=== PATIENT | male | born 1955 | race African-American/Black ===

== ENCOUNTER 2022-06-20 15:20 | Inpatient (IN) | payer MEDICARE ==
[~2022-06-20] VITALS: Ht 185.4 cm; Wt 82.9 kg
[2022-06-20] MEDS ORDERED: INFLUENZA VIRUS VACCINE QVS 2022-23 (6MO+)/PF 60 MCG/0.5 ML SYRINGE IM. ONE (19:15)
[2022-06-20] MEDS ORDERED: PNEUMOCOCCAL VACCINE POLYVALENT 0.5 ML VIAL [PPSV23] IM. ONE (19:15)
[2022-06-20 19:30] VITALS: BP 107/71
[2022-06-20] MEDS: ZOLPIDEM TARTRATE 10 MG TABLET PO PRN (20:39)
[2022-06-20] MEDS: QUEtiapine FUMARATE 100 MG TABLET PO PRN (20:39)
[2022-06-20 22:01] LABS: COVID AG,FIA SOURCE NASAL SWAB
[2022-06-21 06:55] LABS: BASOPHILS % (AUTO) 1.3 % (0.0-2.0); EOSINOPHILS % (AUTO) 5.2 % (1.0-6.0); HEMATOCRIT 37.2 % (41-53); HEMOGLOBIN 12.1 g/dL (13.5-17.5); LYMPHOCYTES # (AUTO) 1.1 K/uL (1.0-4.8); LYMPHOCYTES % (AUTO) 25.5 % (22.0-44.0); MEAN CORPUSCULAR HEMOGLOBIN 25.5 pg (26.0-34.0); MEAN CORPUSCULAR HGB CONC 32.4 G/dL (31.0-37.0); MEAN CORPUSCULAR VOLUME 79 fL (80-100); MONOCYTES # (AUTO) 0.4 K/uL (0.1-1.0); MONOCYTES % (AUTO) 10.3 % (2.0-9.0); NEUTROPHILS # (AUTO) 2.4 K/uL (1.8-7.7); NEUTROPHILS % (AUTO) 57.7 % (40.0-70.0); PLATELET COUNT (AUTO) 240 K/uL (150-450); RED BLOOD CELL COUNT(AUTO) 4.73 MIL/uL (4.50-5.90); RED CELL DISTRIBUTION WIDTH 14.8 % (11.5-14.5)
[2022-06-21 07:11] LABS: ALANINE AMINOTRANSFERASE 17 U/L (12-78); ALBUMIN 3.2 g/dL (3.4-5.0); ALKALINE PHOSPHATASE 81 U/L (46-116); ANION GAP 9 mmol/L (8-16); ASPARTATE AMINOTRANSFERASE 12 U/L (15-37); BILIRUBIN,TOTAL 0.5 mg/dL (0.1-1.0); CALCIUM, TOTAL 8.6 mg/dL (8.8-10.5); CARBON DIOXIDE 26 mmol/L (22-29); CHLORIDE 105 mmol/L (98-107); CHOL/HDL RATIO 2.4 (4.2-7.3); CHOLESTEROL 189 mg/dL (131-200); CREATININE 0.86 mg/dL (0.60-1.30); FREE T4 (FREE THYROXINE) 0.84 ng/dL (0.76-1.46); GLUCOSE,RANDOM 92 mg/dL (70-110); HDL CHOLESTEROL 79 mg/dL (40-60); LDL CHOL (CALC.) 102 mg/dL (0-130); POTASSIUM 3.8 mmol/L (3.5-5.1); SODIUM SERUM 140 mmol/L (136-145); THYROID STIMULATING HORMONE 1.52 uIU/mL (0.36-3.74); TOTAL PROTEIN, SERUM 6.3 g/dL (6.4-8.2); TRIGLYCERIDES 38 mg/dL (15-150); UREA NITROGEN, BLOOD 16 mg/dL (7-18)
[2022-06-21 07:13] LABS: GLOMERULAR FILTR. RATE CALC > 60 mL/min (>60); HEMOGLOBIN A1C 5.4 % (3.8-5.6)
[2022-06-21 07:49] VITALS: BP 112/73
[2022-06-21] MEDS: TraMADol HCL 50 MG TABLET PO PRN ×2 (07:49→17:41)
[2022-06-21 08:11] LABS: APPEARANCE,URINE CLEAR (CLEAR); BILIRUBIN,URINE NEGATIVE (NEGATIVE); GLUCOSE, URINE (UA) NEGATIVE (NEGATIVE); KETONES,URINE NEGATIVE (NEGATIVE); LEUKOCYTE ESTERASE ,URINE NEGATIVE (NEGATIVE); NITRATE,URINE NEGATIVE (NEGATIVE); OCCULT BLOOD,URINE NEGATIVE (NEGATIVE); PROTEIN,URINE NEGATIVE (NEGATIVE); SPECIFIC GRAVITIY, URINE 1.021 (1.003-1.030); UROBILINOGEN,URINE <=1.0 mg/dL (<=1.0)
[2022-06-21 08:26] LABS: AMPHET/METH SCREEN,URINE NEGATIVE (NEGATIVE); BARBITURATE SCREEN, URINE NEGATIVE (NEGATIVE); BENZODIAZEPINES SCREEN,URINE NEGATIVE (NEGATIVE); CANNABINOID SCREEN,URINE NEGATIVE (NEGATIVE); COCAINE SCREEN,URINE NEGATIVE (NEGATIVE); METHADONE SCREEN, URINE NEGATIVE (NEGATIVE); OPIATE SCREEN,URINE NEGATIVE (NEGATIVE)
[2022-06-21 08:29] LABS: PHENCYCLIDINE SCREEN,URINE NEGATIVE (NEGATIVE)
[2022-06-21 08:54] VITALS: BP 112/73
[2022-06-21 16:09] VITALS: BP 105/75
[2022-06-21 17:41] VITALS: BP 116/76
[2022-06-21] MEDS ORDERED: MAGNESIUM HYDROXIDE SUSPENSION 30 ML UDCUP PO PRN (19:00)
[2022-06-21] MEDS ORDERED: MAG HYDROX/AL HYDROX/SIMETH ES 30 ML SUSPENSION UDCUP PO PRN (19:00)
[2022-06-21] MEDS ORDERED: LOPERAMIDE HCL 2 MG CAPSULE PO PRN (19:00)
[2022-06-21] MEDS ORDERED: CloNIDine HCL 0.1 MG TABLET PO PRN (19:00)
[2022-06-21] MEDS ORDERED: ONDANSETRON HCL 4 MG TABLET PO PRN (19:00)
[2022-06-21] MEDS ORDERED: PETROLATUM,WHITE 28 GM JELLY TP PRN (19:00)
[2022-06-21] MEDS ORDERED: GuaiFENesin/D-METHORPHAN [SUGAR-FREE] 200-20MG/10 ML SYRUP UDCUP PO PRN (19:00)
[2022-06-21] MEDS ORDERED: ALBUTEROL SULFATE HFA 90 MCG/PUFF 8 GM INHALER IH PRN (19:00)
[2022-06-21] MEDS ORDERED: DOCUSATE SODIUM 100 MG CAPSULE PO PRN (19:00)
[2022-06-21] MEDS ORDERED: NICOTINE 14 MG/24 HOUR PATCH TD PRN (19:00)
[2022-06-21] MEDS ORDERED: ACETAMINOPHEN 325 MG TABLET PO PRN (19:00)
[2022-06-21] MEDS: QUEtiapine FUMARATE 200 MG TABLET PO SCH (20:14)
[2022-06-22 08:30] VITALS: BP 119/78
[2022-06-22 09:00] VITALS: BP 119/78
[2022-06-22] MEDS: TraMADol HCL 50 MG TABLET PO PRN (09:00)
[2022-06-22 10:00] VITALS: BP 111/71
[2022-06-22 13:50] LABS: COVID AG,FIA SOURCE NASAL SWAB
[2022-06-22] MEDS: LORazepam 2 MG TABLET PO PRN (14:33)
[2022-06-22 16:37] VITALS: BP 94/62
[2022-06-22] MEDS: QUEtiapine FUMARATE 200 MG TABLET PO SCH (20:39)
[2022-06-23 08:00] VITALS: BP 108/64
[2022-06-23] MEDS: TraMADol HCL 50 MG TABLET PO PRN (08:00)
[2022-06-23 12:17] VITALS: BP 116/65
[2022-06-23] MEDS: IBUPROFEN 400 MG TABLET PO PRN (12:17)
[2022-06-23 16:28] VITALS: BP 100/60
[2022-06-23] MEDS: QUEtiapine FUMARATE 200 MG TABLET PO SCH (20:12)
[2022-06-24 07:53] VITALS: BP 88/60
[2022-06-24] MEDS: LORazepam 2 MG TABLET PO PRN (07:53)
[2022-06-24] MEDS: IBUPROFEN 400 MG TABLET PO PRN ×2 (07:53→21:54)
[2022-06-24 08:53] VITALS: BP 96/64
[2022-06-24] MEDS: QUEtiapine FUMARATE 200 MG TABLET PO SCH (20:56)
[2022-06-24 21:52] VITALS: BP 94/62
[2022-06-24] MEDS: ZOLPIDEM TARTRATE 10 MG TABLET PO PRN (21:53)
[2022-06-25 08:31] VITALS: BP 103/70
[2022-06-25] MEDS: IBUPROFEN 400 MG TABLET PO PRN ×2 (08:34→17:51)
[2022-06-25 17:47] VITALS: BP 103/61
[2022-06-25] MEDS: QUEtiapine FUMARATE 100 MG TABLET PO PRN (17:51)
[2022-06-25] MEDS: QUEtiapine FUMARATE 200 MG TABLET PO SCH (20:39)
[2022-06-25] MEDS: ZOLPIDEM TARTRATE 10 MG TABLET PO PRN (21:45)
[2022-06-26 08:30] VITALS: BP 100/62
[2022-06-26 11:32] LABS: COVID AG,FIA SOURCE NASAL SWAB
== END 2022-06-26 12:07 | disposition short-term general hospital (02) | DRG 885 ==
LOC: 3EC 16:56
PROVIDERS: ADMIT Psychiatry & Neurology Psychiatry; ATTEND Psychiatry & Neurology Psychiatry
DX: F20.0 Paranoid schizophrenia (principal); R45.851 Suicidal ideations; S52.502A Unspecified fracture of the lower end of left radius, initial encounter for closed fracture; R45.850 Homicidal ideations; F10.10 Alcohol abuse, uncomplicated; D72.819 Decreased white blood cell count, unspecified; D64.9 Anemia, unspecified; W18.39XA Other fall on same level, initial encounter; Y93.89 Activity, other specified; Z59.00 Homelessness unspecified; Z79.899 Other long term (current) drug therapy; Y92.89 Other specified places as the place of occurrence of the external cause; Y99.8 Other external cause status
CPT/HCPCS: 80053; 80061; 80307; 81003; 83036; 84439; 84443; 85025; 87081

== ENCOUNTER 2022-06-26 11:56 | Inpatient (IN) | payer OTHER ==
[~2022-06-26] VITALS: Ht 185.4 cm; Wt 81.8 kg
[2022-06-26] MEDS ORDERED: MIDAZOLAM HCL 2 MG/2 ML VIAL IVP ONE (12:00)
[2022-06-26] MEDS ORDERED: ONDANSETRON HCL 4 MG/2 ML VIAL IVP ONE (12:00)
[2022-06-26] MEDS ORDERED: LIDOCAINE/PF 2% 5 ML VIAL IM ONE (12:00)
[2022-06-26] MEDS ORDERED: FentaNYL CITRATE PF 100 MCG/2 ML VIAL IVP ONE (12:00)
[2022-06-26] MEDS ORDERED: MORPHINE SULFATE/PF 0.5 MG/ML 10 ML AMP IVP ONE (12:00)
[2022-06-26] MEDS ORDERED: PROPOFOL 1% 20 ML VIAL IVP ONE (12:00)
[2022-06-26] MEDS ORDERED: SUCCINYLCHOLINE CHLORIDE 20 MG/ML 10 ML VIAL IVP ONE (12:00)
[2022-06-26] MEDS ORDERED: DEXAMETHASONE SOD PHOS 4 MG/ML VIAL IVP ONE (12:00)
[2022-06-26] MEDS ORDERED: 0.9% SODIUM CHLORIDE 10 ML VIAL IVP ONE (12:00)
[2022-06-26] MEDS ORDERED: SODIUM CL IRRIG SOLN BAG 3,000 ML IRRIG ONE (12:07)
[2022-06-26] MEDS ORDERED: BUPIVACAINE HCL/PF 0.25% 30 ML VIAL ONE (12:07)
[2022-06-26] MEDS ORDERED: VANCOMYCIN HCL 1 GM/VIAL ONE ×2 (12:07→12:11)
[2022-06-26] MEDS ORDERED: RINGERS SOLUTION,LACTATED 1,000 ML IV ONE (12:15)
[2022-06-26] MEDS ORDERED: BUPIVACAINE LIPOSOME/PF 1.3%-13.3MG/ML SUSPENSION 20 ML VIAL INJ ONE (12:15)
[2022-06-26] MEDS ORDERED: HYDROmorphone HCL 2 MG/ML SYRINGE IVP PRN (14:15)
[2022-06-26] MEDS ORDERED: FentaNYL CITRATE PF 100 MCG/2 ML VIAL IVP PRN (14:15)
[2022-06-26] MEDS ORDERED: HYDROmorphone HCL 2 MG/ML SYRINGE ONE (16:37)
[2022-06-26] MEDS ORDERED: FentaNYL CITRATE PF 100 MCG/2 ML VIAL ONE (16:41)
[2022-06-26] MEDS ORDERED: OxyCODONE HCL/ACETAMINOPHEN 5-325 MG TABLET PO PRN (17:00)
[2022-06-26 17:40] VITALS: BP 127/78
[2022-06-26] MEDS: OxyCODONE HCL/ACETAMINOPHEN 5-325 MG TABLET PO PRN ×2 (17:56→23:58)
[2022-06-26] MEDS: OXYGEN THERAPY IH SCH (20:20)
[2022-06-26] MEDS: CeFAZolin 1 GM/DEXTROSE 50 ML IV SCH (20:21)
[2022-06-26 20:41] VITALS: BP 118/73
[2022-06-27 05:38] VITALS: BP 125/73
[2022-06-27] MEDS: OxyCODONE HCL/ACETAMINOPHEN 5-325 MG TABLET PO PRN ×4 (05:57→23:41)
[2022-06-27] MEDS: CeFAZolin 1 GM/DEXTROSE 50 ML IV SCH (05:58)
[2022-06-27 07:18] VITALS: BP 101/64
[2022-06-27] MEDS: OXYGEN THERAPY IH SCH ×2 (07:47→20:00)
[2022-06-27] MEDS ORDERED: BISACODYL 10 MG RECTAL RECTAL SUPPOSITORY PR PRN (15:15)
[2022-06-27] MEDS ORDERED: ONDANSETRON HCL 4 MG/2 ML VIAL IVP PRN (15:15)
[2022-06-27] MEDS ORDERED: MAGNESIUM HYDROXIDE SUSPENSION 30 ML UDCUP PO PRN (15:15)
[2022-06-27] MEDS ORDERED: ACETAMINOPHEN 325 MG TABLET PO PRN (15:15)
[2022-06-27] MEDS ORDERED: IPRATROPIUM BROMIDE 0.5 MG/2.5 ML NEB SOLUTION NEB PRN (15:15)
[2022-06-27] MEDS ORDERED: MORPHINE SULFATE 2 MG/ML SYRINGE IVP PRN (15:15)
[2022-06-27] MEDS ORDERED: HYDROCODONE/ACETAMINOPHEN 5-325 MG TABLET PO PRN (15:15)
[2022-06-27] MEDS ORDERED: ZOLPIDEM TARTRATE 5 MG TABLET PO PRN (15:15)
[2022-06-27] MEDS ORDERED: ALBUTEROL SULFATE 2.5 MG/0.5 ML NEB SOLUTION NEB PRN (15:15)
[2022-06-27 15:38] VITALS: BP 105/68
[2022-06-27] MEDS: HEPARIN SODIUM,PORCINE 5,000 UNITS/ML VIAL SQ SCH ×2 (16:11→23:38)
[2022-06-27 19:49] VITALS: BP 110/69
[2022-06-27] MEDS ORDERED: QUEtiapine FUMARATE 200 MG TABLET PO SCH (21:00)
[2022-06-28 04:33] VITALS: BP 99/57
[2022-06-28 08:07] VITALS: BP 123/81
[2022-06-28] MEDS: HEPARIN SODIUM,PORCINE 5,000 UNITS/ML VIAL SQ SCH (08:21)
[2022-06-28] MEDS ORDERED: PANTOPRAZOLE SODIUM 40 MG DR TABLET PO SCH (09:00)
[2022-06-28 12:26] VITALS: BP 103/58
[2022-06-28] MEDS: OxyCODONE HCL/ACETAMINOPHEN 5-325 MG TABLET PO PRN (12:26)
[2022-06-28] MEDS ORDERED: QUET200T PO (13:06)
[2022-06-28] MEDS ORDERED: QUEtiapine FUMARATE 200 MG TABLET PO SCH (21:00)
== END 2022-06-28 14:00 | disposition home or self-care (01) | DRG 511 ==
LOC: 6S 17:28
PROVIDERS: ADMIT Orthopaedic Surgery; ATTEND Orthopaedic Surgery
PROC: 0PSJ04Z Reposition Left Radius with Internal Fixation Device, Open Approach (ICD-10-PCS; principal; 2022-06-26 13:45)
DX: S52.502A Unspecified fracture of the lower end of left radius, initial encounter for closed fracture (principal); F20.0 Paranoid schizophrenia; D64.9 Anemia, unspecified; F10.10 Alcohol abuse, uncomplicated; Z59.00 Homelessness unspecified; Z79.899 Other long term (current) drug therapy; Z85.46 Personal history of malignant neoplasm of prostate; Y08.89XA Assault by other specified means, initial encounter; Y93.89 Activity, other specified; Y92.89 Other specified places as the place of occurrence of the external cause; Y99.8 Other external cause status
CPT/HCPCS: 93005; 97161; 97165; C9290; J0330; J0690; J1100; J1170; J1644; J2250; J2274; J2405; J2704; J3010; J3370; J3490; J7120